=== PATIENT | male | born 1965 | race Caucasian/White ===

== ENCOUNTER 2017-01-05 12:20 | Emergency (ER) | payer MEDICAID ==
[2017-01-05 12:31] VITALS: BP 99/75
--- NOTE | 2017-01-05 12:51 | ERNOTE ---
Psychological HPI - Date Date of Service: 01/05/17 - General Chief Complaint: Anxiety Source: Reports: patient, RN notes reviewed, past records Exam Limitations: Reports: no limitations - Immun/Allergies/Home Medications Allergies/Adverse Reactions: Allergies No Known Allergies Allergy (Verified 01/05/17 12:31) Home Medications: HOME MEDICATIONS Ibuprofen [Motrin] 800 mg PO TID PRN #20 tab 11/21/15 [Last Taken Unknown] Alprazolam 1 mg PO BID PRN #60 tablet 01/05/17 [Last Taken Unknown] Citalopram Hydrobromide [Citalopram HBr] 20 mg PO DAILY #30 tablet 01/05/17 [ Last Taken Unknown] - History of Present Illness Narrative: 51 y/o male ambulatory to the ED for anxiety. He had been taking citalopram and xanax for some time, but he missed his last appointment with his PCP and has been out of medication. He felt like he was doing fine for a few weeks, but the symptoms have been gradually worsening again. He is under the impression that he was dismissed from his PCP, but his clinic record shows he was only given a warning letter for missed appointments. He is tearful and reports that he feels like he just can't handle things anymore. He denies any thoughts of self harm. Time Seen by Provider: 01/05/17 12:34 Prior Treament: Reports: similar symptoms before. Denies: recently seen Review of Systems - Review of Systems Constitutional: Absent: recent illness, fever, chills EYE: Present: no symptoms reported ENT: Present: no symptoms reported Respiratory: Absent: shortness of breath, cough Cardiology: Absent: chest pain, palpitations Gastrointestinal/Abdominal: Absent: nausea, vomiting, abdominal pain, eating less, drinking less Genitourinary: Present: no symptoms reported Musculoskeletal: Absent: muscle pain, joint pain Skin: Absent: rash, lesions Neurological: Absent: headache, dizziness/light-headedness Endocrine: Present: no symptoms reported Hematologic/Lymphatic: Present: no symptoms reported Psych: Present: emotional problems. Absent: anxiety, depressed - Patient's Past Medical History Patient History - Medical: Anxiety Patient History - Cardiac/Respiratory: No pertinent hx Patient History - Cancer: No Hx of Cancer Patient History - Surgical Procedures: Appendectomy, T & A Patient History - Other: None - Social History Living Situations: home Psych History: Hx of Anxiety, Hx of Depression Smoking Status: Current every day smoker Cigarettes Packs Per Day: 1 Alcohol Use: none Drug Use: marijuana - Immunizations Immunizations Up to Date: Yes Hx Pneumococcal Vaccination: Yes History of Influenza Vaccine: Yes Physical Exam - Physical Exam General Appearance: Present: wd/wn, alert, anxious Neck: Present: normal inspection, nontender, supple Respiratory: Present: no respiratory distress, normal breath sounds, no accessory muscle use, lungs clear Cardiovascular/Chest: Present: regular rate, rhythm, no murmur Extremity Exam: Present: normal inspection, normal range of motion, no edema Neurological Exam: Present: alert, oriented, normal mood/affect Skin Exam: Present: normal color, warm/dry ED Progress - Vital Signs Patient's Vital Signs:: I have reviewed the patient's vital signs. Vital Signs: Vital Signs 01/05/17 12:22 Temperature 36.8 C Pulse Rate 77 Respiratory 18 Rate Blood Pressure 99/75 O2 Sat by Pulse 100 Oximetry - Progress/Reassessment Chief Complaint: Anxiety Progress:: Improved Departure Clinical Impression: Anxiety - Departure Disposition: Home Follow Up Needed Condition: Stable Instructions: Panic Attacks, [id number] Additional Instructions: Schedule an appointment with [place] - be careful not to miss appointments and if you are going to miss one, make sure you give 24 hours notice Referrals: Georgia Douglas FNP [Primary Care Provider] - Prescriptions: Alprazolam 1 mg PO BID PRN #60 tablet PRN Reason: Anxiety Citalopram Hydrobromide [Citalopram HBr] 20 mg PO DAILY #30 tablet
== END 2017-01-05 12:53 | disposition home or self-care (01) ==
LOC: ER 12:20
DX: F41.1 Generalized anxiety disorder (principal)

== ENCOUNTER 2020-05-19 12:44 | Observation (INO) ==
[2020-05-19] MEDS ORDERED: VANCOMYCIN/WATER FOR INJ (PEG) 1 GM/200 ML BAG IV ONE (13:42)
[2020-05-19] MEDS ORDERED: KETOROLAC TROMETHAMINE 30 MG/ML VIAL IV ONE (13:42)
[2020-05-19 14:16] LABS: Hematocrit 50.3 % (42.0-52.0); Hemoglobin 17.7 gm/dL (13.5-18.0); Mean Corpuscular Hemoglobin 32.4 pg (27-31); Mean Corpuscular Hgb Conc 35.2 g/dl (32-36); Mean Platelet Volume 9.9 fl (8-11.3); Neutrophil # 11.6 K/mm3 (1.3-6.0); Neutrophil % 74.6 % (42-75.0); Platelet Count 390 K/mm3 (150-450); Red Blood Count 5.47 M/mm3 (4.7-6.0); Red Cell Distribution Width 12.8 % (11.5-14.0); White Blood Count 15.6 K/mm3 (4.0-10.5)
[2020-05-19 14:23] LABS: BUN/Creatinine Ratio 15.9 (9.0-21.6); Calcium * 9.3 mg/dL (7.9-10.9); Estimated Creat Clear 74.6
--- NOTE | 2020-05-19 14:30 | ERNOTE ---
Medical Problem HPI - Narrative Date of Service: 05/19/20 - General Chief Complaint: General Assessment Time Seen by Provider: 05/19/20 13:25 Source: patient - Immun/Allergies/Home Medications Immunizations: IMMUNIZATION HX Immunizations Up to Date Yes History of Influenza Vaccine No Hx Pneumococcal Vaccination No Allergies/Adverse Reactions: Allergies pineapple Allergy (Verified 05/19/20 12:56) hives, nausea tramadol Allergy (Verified 05/19/20 12:56) mood change, angry Home Medications: HOME MEDICATIONS citalopram 40 mg tablet 40 mg PO DAILY #30 tab 05/29/19 [Last Taken Unknown] - History of Present History Narrative: 55-year-old male presents for infection in his groin. He states his symptoms started proximately 3 days ago. He has noticed a lesion on his left buttocks, left testicle, and left groin. He has had chills without fevers. He denies a past medical history of like symptoms. He is not diabetic. He denies any known injuries to the area that might have started the infection. He attempted to see his primary care provider regarding the developing lesions however was unable to see them in office. He also reports concerns regarding his Xanax prescription. Timing: constant, getting worse Review of Systems - Narrative Narrative: REVIEW OF SYSTEMS GENERAL: Negative for any nausea, vomiting, fevers, or weight loss. HEENT: Negative for sore throats, congestion, changes in vision, changes in hearing, CARDIAC: Negative for any chest pain, dyspnea, or palpitations. PULMONARY: Negative for any shortness of breath, cough, or wheezing. GASTROINTESTINAL: Negative for any abdominal pain, nausea, vomiting, constipation, or diarrhea. GENITOURINARY: Negative for any dysuria, changes in urine output. INTEGUMENTARY: Positive for rashes. NEUROLOGIC: Negative for changes in vision or headaches. RHEUMATOLOGIC: Negative for any joint pains, Medical History (Last Reviewed 05/19/20 @ 14:13 by Mina Delgado MD) Pain, dental (Acute) Tobacco abuse (Acute) Onset Date: Unknown Insomnia (Acute) Onset Date: Unknown GERD (gastroesophageal reflux disease) (Acute) Onset Date: Unknown Diverticulitis (Acute) Onset Date: Unknown Depression (Acute) Onset Date: Unknown COPD (chronic obstructive pulmonary disease) (Chronic) Onset Date: Unknown Anxiety disorder (Chronic) Onset Date: ~2012 Left ankle sprain (Acute) Anxiety (Acute) Cervical paraspinal muscle spasm (Acute) Upper respiratory infection (Acute) Muscle spasm (Acute) Lumbar strain (Acute) Surgical History: Surgical History (Last Reviewed 05/19/20 @ 14:14 by Mina Delgado MD) H/O wisdom tooth extraction Onset Date: ~1989 History of facial surgery Onset Date: ~2002 History of tonsillectomy Onset Date: ~1969 Hx of appendectomy Onset Date: ~1977 Family History: Family History (Last Reviewed 05/19/20 @ 14:14 by Mina Delgado MD) Mother Myocardial infarction Hypertension Social History: (Last Reviewed 05/19/20 @ 14:14 by Mina Delgado MD) Social History: adopted: No foster care: No intermediate: No Marital status: Single lives independently: Yes household members: children caregiver/support person: No current occupational status: employed current occupation: [employer] Highest level of school completed/degree received: high school graduate Service: No Tobacco: Smoking Status: Current every day smoker tobacco type: cigarettes Smoking cigarettes per day: 20.0 Smoking packs per day: 1 second hand exposure: Yes Alcohol: alcohol intake: current alcohol intake frequency: a few times a month Substance Use: substance use type: former substance user Dietary Habits: caffeine: Yes Type: carbonated beverages Exercise: Physical activity functional status: normal ROM and activity Physical Exam - Physical Exam General Appearance: Present: wd/wn, no apparent distress Head Exam: Present: normal inspection Respiratory: Present: no respiratory distress, normal breath sounds Cardiovascular/Chest: Present: regular rate, rhythm, no murmur, normal peripheral pulses Gastrointestinal/Abdominal: Present: nontender Male Genitals Exam: Present: other - 3 lesions in the groin with surrounding and communicating erythema, first lesion on his left testicle, second lesion on his left groin/inner thigh, third lesion on his left buttocks. 3 lesions are surrounded by erythema and are extremely tender. Erythema communicates between each lesion. Neurological Exam: Present: alert, normal mood/affect Skin Exam: Present: normal color, warm/dry Progress - Results and Orders Patient's Lab Results:: I have reviewed the patient's lab results. - Vital Signs Vital Signs: Vital Signs 05/19/20 12:44 05/19/20 13:49 Temperature 36.6 C Pulse Rate 98 97 Respiratory Rate 16 16 Blood Pressure 119/73 138/81 O2 Sat by Pulse Oximetry 98 97 - Progress/Reassessment Chief Complaint: General Assessment Progress:: Unchanged Progress Note-Subjective: 05/19/20 20:51 55-year-old male presenting with cellulitis of the left buttocks, and groin with a small area of cellulitis on the left scrotum. Foreign years gangrene was co nsidered in the differential. At this point foreigners gangrene seems less likely. The area of erythema was traced with a pen, cultures were obtained, patient was started on vancomycin. Additionally, CT pelvis was obtained to evaluate further for focal pockets of abscess. CT pelvis was reassuring and patient was placed in inpatient care for further treatment. Departure Clinical Impression: Cellulitis, scrotum, Cellulitis of groin, left - Departure Disposition: Still a patient Condition: Fair
--- NOTE | 2020-05-19 17:09 | HP ---
Chief Complaint - Chief Complaint Date of Service: 05/19/20 Time of Service: 16:34 Chief Complaint: Pain in left groin, scrotum and buttock History of Present Illness: 55-year-old male with a past medical history of anxiety, COPD, GERD, insomnia, tobacco abuse presents from home with complaints of pain in the groin for the past 2 to 3 days. He states he has not had anything like this in the past. He reports subjective fevers and chills at home but did not take his temperature. In the ER he was found to have stable vitals. Blood work showed leukocytosis of 15.6. CT abdomen pelvis showed nonspecific inflammatory change within the subcutaneous fat of the left buttock region medially and inferiorly, no discrete mass or abscess, no subcutaneous air identified, no evidence for inflammatory extension. He was started on vancomycin in the emergency room. He is being admitted for treatment of cellulitis. Medical History (Last Reviewed 05/19/20 @ 14:13 by Mina Delgado MD) Pain, dental (Acute) Tobacco abuse (Acute) Onset Date: Unknown Insomnia (Acute) Onset Date: Unknown GERD (gastroesophageal reflux disease) (Acute) Onset Date: Unknown Diverticulitis (Acute) Onset Date: Unknown Depression (Acute) Onset Date: Unknown COPD (chronic obstructive pulmonary disease) (Chronic) Onset Date: Unknown Anxiety disorder (Chronic) Onset Date: ~2012 Left ankle sprain (Acute) Anxiety (Acute) Cervical paraspinal muscle spasm (Acute) Upper respiratory infection (Acute) Muscle spasm (Acute) Lumbar strain (Acute) Surgical History: Surgical History (Last Reviewed 05/19/20 @ 14:14 by Mina Delgado MD) H/O wisdom tooth extraction Onset Date: ~1989 History of facial surgery Onset Date: ~2002 History of tonsillectomy Onset Date: ~1969 Hx of appendectomy Onset Date: ~1977 Family History: Family History (Last Reviewed 05/19/20 @ 14:14 by Mina Delgado MD) Mother Myocardial infarction Hypertension Social History: (Last Reviewed 05/19/20 @ 14:14 by Mina Delgado MD) Social History: adopted: No foster care: No group home: No Marital status: Single lives independently: Yes household members: children caregiver/support person: No current occupational status: employed current occupation: C[employer] Highest level of school completed/degree received: high school graduate Service: No Tobacco: Smoking Status: Current every day smoker tobacco type: cigarettes Smoking cigarettes per day: 20.0 Smoking packs per day: 1 second hand exposure: Yes Alcohol: alcohol intake: current alcohol intake frequency: a few times a month Substance Use: substance use type: former substance user Dietary Habits: caffeine: Yes Type: carbonated beverages Exercise: Physical activity functional status: normal ROM and activity Review Of Systems (GEN) - Review of Systems Generalized/Overall Review: Present: Chills. Absent: Fever Respiratory: Absent: Shortness of Breath Cardiac: Absent: Chest Pain Abdominal: Absent: Abdominal Pain Genitourinary: Present: Other - Pain, swelling and redness in the scrotum Skin: Present: Other - Pain, swelling and redness in the left groin and buttock Misc: All systems neg except as marked Immunizations: IMMUNIZATION HX Immunizations Up to Date Yes History of Influenza Vaccine No Hx Pneumococcal Vaccination No Allergies/Adverse Reactions: Allergies Allergy/AdvReac Type Severity Reaction Status Date / Time pineapple Allergy hives, Verified 05/19/20 12:56 nausea tramadol Allergy mood Verified 05/19/20 12:56 change, angry Home Medications: HOME MEDICATIONS citalopram 40 mg tablet 40 mg PO DAILY #30 tab 05/29/19 [Last Taken Unknown] Exam - Exam Vital Signs: Vital Signs - Last Taken Temp 36.4 C 05/19/20 16:23 Pulse 72 05/19/20 16:56 Resp 14 05/19/20 16:56 BP 121/78 05/19/20 16:56 Pulse Ox 95 05/19/20 16:23 Constitutional: Present: Alert, Cooperative, Well developed, Well nourished, Middle aged ENT Exam: Present: hearing grossly normal, moist mucous membranes Eye Exam: bilateral eye: EOMI Neck: Absent: lymphadenopathy (R), lymphadenopathy (L) Back Exam: Present: no CVA tenderness, no vertebral tenderness Respiratory: Present: lungs clear, no respiratory distress, no accessory muscle use, No wheezing. Absent: crackles, rhonchi Cardiovascular/Chest: Present: normal peripheral pulses, regular rate, rhythm, no edema, no murmur Peripheral Pulses: dorsalis-pedis (R): 1+, dorsalis-pedis (L): 1+ Abdomen: Present: Normal bowel sounds, soft, nontender /Rectal: Present: Other - Multiple tender, firm nodules noted in the left scrotum, left inguinal region, left medial buttock with surrounding erythema. No drainage noted Extremity: Present: no pedal edema Skin Exam: Present: other - Erythema noted in the left scrotum, left groin and left buttock. Neurologic: Present: alert, normal mood/affect Appearance: Present: appropriate appearance, appropriate insight Eye contact: Present: cooperative Thoughts: Present: normal mood /affect Diagnostic Studies: Abnormal Lab Results 05/19/20 05/19/20 Range/Units 14:05 14:05 WBC 15.6 H (4.0-10.5) K/mm3 MCH 32.4 H (27-31) pg Immature Gran % (Auto) 1.30 H (0.001-0.429) % Immature Gran # (Auto) 0.20 H (0.000-0.0310) K/mm3 Lymphocytes % 13.7 L (20-51) % Neutrophils # 11.6 H (1.3-6.0) K/mm3 Monocytes # 1.3 H (0.0-1.0) k/mm3 Random Glucose 115 H (70-110) mg/dL Laboratory Results WBC 15.6 K/mm3 (4.0-10.5) H 05/19/20 14:05 RBC 5.47 M/mm3 (4.7-6.0) 05/19/20 14:05 Hgb 17.7 gm/dL (13.5-18.0) 05/19/20 14:05 Hct 50.3 % (42.0-52.0) 05/19/20 14:05 MCV 92.0 fl (78-100) 05/19/20 14:05 MCH 32.4 pg (27-31) H 05/19/20 14:05 MCHC 35.2 g/dl (32-36) 05/19/20 14:05 RDW 12.8 % (11.5-14.0) 05/19/20 14:05 Plt Count 390 K/mm3 (150-450) 05/19/20 14:05 MPV 9.9 fl (8-11.3) 05/19/20 14:05 Immature Gran % (Auto) 1.30 % (0.001-0.429) H 05/19/20 14:05 Immature Gran # (Auto) 0.20 K/mm3 (0.000-0.0310) H 05/19/20 14:05 Neutrophils % 74.6 % (42-75.0) 05/19/20 14:05 Lymphocytes % 13.7 % (20-51) L 05/19/20 14:05 Monocytes % 8.0 % (0.0-9) 05/19/20 14:05 Eosinophils % 2.0 % (0.0-3.0) 05/19/20 14:05 Basophils % 0.4 % (0.0-1.0) 05/19/20 14:05 Nucleated RBC % 0.0 k/mm3 (0-1) 05/19/20 14:05 Neutrophils # 11.6 K/mm3 (1.3-6.0) H 05/19/20 14:05 Lymphocytes # 2.13 k/mm3 (1.5-3.5) 05/19/20 14:05 Monocytes # 1.3 k/mm3 (0.0-1.0) H 05/19/20 14:05 Eosinophils # 0.3 k/mm3 (0.0-0.7) 05/19/20 14:05 Absolute Basophils 0.1 k/mm3 (0.0-0.1) 05/19/20 14:05 Sodium 134 mmol/L (132-142) 05/19/20 14:05 Plasma Sodium 134 mmol/L (130-142) 05/19/20 14:05 Potassium 4.0 mmol/L (3.4-4.6) 05/19/20 14:05 Chloride 98 mmol/L (97-106) 05/19/20 14:05 Carbon Dioxide 28.0 mmol/L (24-32.6) 05/19/20 14:05 Anion Gap 12.0 mmol/L (6.8-13.8) 05/19/20 14:05 BUN 17 mg/dL (6-23) 05/19/20 14:05 Creatinine 1.07 mg/dL (0.4-1.4) 05/19/20 14:05 Est GFR (Non-Af Amer) 77 mL/min (60-130) 05/19/20 14:05 BUN/Creatinine Ratio 15.9 (9.0-21.6) 05/19/20 14:05 Random Glucose 115 mg/dL (70-110) H 05/19/20 14:05 Lactic Acid, Venous 1.3 mmol/L (0.4-2.0) 05/19/20 14:05 Calcium 9.3 mg/dL (7.9-10.9) 05/19/20 14:05 Assessment/Plan - Narrative Narrative: 55-year-old male with a past medical history of anxiety, COPD, GERD, insomnia, tobacco abuse presents from home with complaints of pain in the groin for the past 2 to 3 days. He states he has not had anything like this in the past. He reports subjective fevers and chills at home but did not take his temperature. In the ER he was found to have stable vitals. Blood work showed leukocytosis of 15.6. CT abdomen pelvis showed nonspecific inflammatory change within the subcutaneous fat of the left buttock region medially and inferiorly, no discrete mass or abscess, no subcutaneous air identified, no evidence for inflammatory extension. He was started on vancomycin in the emergency room. He is being admitted for treatment of cellulitis. Plan #1 continue with vancomycin day 1 #2 resume home medications for comorbidities #3 follow-up wound cultures - Assessment/Plan (1) Cellulitis, scrotum Problem: Acute (2) Cellulitis of groin, left Problem: Acute (3) Cellulitis of buttock, left Problem: Acute (4) Tobacco abuse Problem: Acute (5) Depression Problem: Acute (6) Anxiety disorder Problem: Chronic Qualifiers:
[2020-05-19] MEDS ORDERED: VANCOMYCIN/WATER FOR INJ (PEG) 1 GM/200 ML BAG IV SCH (17:30)
[2020-05-19] MEDS: oxyCODONE HCL/ACETAMINOPHEN 1 TAB TABLET PO PRN (19:36)
[2020-05-20] MEDS: HYDROcodone/ACETAMINOPHEN 1 EACH TABLET PO PRN ×5 (00:48→19:56)
[2020-05-20] MEDS: VANCOMYCIN HCL 1 GM in DEXTROSE 5 % IN WATER 250 ML IV SCH ×4 (02:24→14:23)
[2020-05-20] MEDS: oxyCODONE HCL/ACETAMINOPHEN 1 TAB TABLET PO PRN ×4 (02:27→22:01)
[2020-05-20 06:31] LABS: Hematocrit 47.7 % (42.0-52.0); Hemoglobin 16.7 gm/dL (13.5-18.0); Mean Cell Volume 92.6 fl (78-100); Mean Corpuscular Hemoglobin 32.4 pg (27-31); Neutrophil # 7.7 K/mm3 (1.3-6.0); Neutrophil % 64.3 % (42-75.0); Platelet Count 401 K/mm3 (150-450); Red Blood Count 5.15 M/mm3 (4.7-6.0); Red Cell Distribution Width 12.8 % (11.5-14.0)
[2020-05-20 06:59] LABS: Albumin * 2.6 gm/dl (3.4-5.0); Anion Gap 10.9 mmol/L (6.8-13.8); Bilirubin, Total 0.3 mg/dL (0.0-1.1); Ca. Corrected For Albumin 9.5 mg/dL (8.4-10.2); Calcium * 8.7 mg/dL (7.9-10.9); Carbon Dioxide 27.2 mmol/L (24-32.6); Potassium 4.1 mmol/L (3.4-4.6); Total Protein 6.7 gm/dL (6.2-8.2)
[2020-05-20] MEDS: CITALOPRAM HYDROBROMIDE 20 MG TABLET PO SCH (08:39)
[2020-05-20] MEDS: hydrOXYzine HCL 25 MG TABLET PO PRN (11:34)
--- NOTE | 2020-05-20 12:14 | CONS ---
[facility] - General Date of Service: 05/20/20 Source: patient, RN/MD, RN notes reviewed, old records Exam Limitations: no limitations - History of Present Illness Timing/Duration: other - 2 or 3 days Modifying Factors - (Worsens): Reports: movement Modifying Factors - (Improves): Reports: immobilization Associated Symptoms: denies symptoms Allergies/Adverse Reactions: Allergies pineapple Allergy (Verified 05/19/20 12:56) hives, nausea tramadol Allergy (Verified 05/19/20 12:56) mood change, angry Home Medications: Home Medications Medication Instructions Recorded Last Taken citalopram 40 mg tablet 40 mg PO DAILY #30 tab 05/29/19 Unknown busPIRone HCL [Buspar] 10 mg PO TID 05/19/20 Unknown Cyclobenzaprine HCl 10 mg PO TID PRN 05/20/20 Unknown Hydrocodone-Acetamin 5-325 mg mg PO Q4H PRN 05/20/20 Unknown Procedures CLOSURE SKIN & SUBCUTANEOUS NEC (08/25/09) Colonoscopy (01/06/02) Contrast arthrogram (12/31/06) Esophagogastroduodenoscopy [EGD] with closed biopsy (01/06/02) Other open reduction of facial fracture (01/11/06) Medications - Medications Current Medications: Current Medications Hydrocodone Bitart/Acetaminophen (Hydrocodone/Acetaminophen 1 Each Tablet) 1 each PO Q4H PRN PRN Reason: Pain Stop: 06/19/20 00:16 Last Admin: 05/20/20 10:07 Dose: 1 each Documented by: Citalopram Hydrobromide (Citalopram Hydrobromide 20 Mg Tablet) 40 mg PO DAILY SAIGE Stop: 06/19/20 09:01 Last Admin: 05/20/20 08:39 Dose: 40 mg Documented by: Hydroxyzine HCl (Hydroxyzine Hcl 25 Mg Tablet) 25 mg PO TID PRN PRN Reason: Anxiety Stop: 06/19/20 11:26 Last Admin: 05/20/20 11:34 Dose: 25 mg Documented by: Vancomycin HCl 1 gm/ Dextrose/ (Water) 250 mls @ 140 mls/hr IV Q12H SAIGE Stop: 06/19/20 02:31 Last Infusion: 05/20/20 04:22 Dose: Infused Documented by: Oxycodone/Acetaminophen (Oxycodone Hcl/Acetaminophen 1 Tab Tablet) 1 tab PO Q6H PRN PRN Reason: Pain Stop: 06/18/20 17:31 Last Admin: 05/20/20 08:39 Dose: 1 tab Documented by: Review of Systems - Review of Systems Generalized/Overall Review: Absent: Chills, Fever EENTM: Present: No Symptoms Reported Respiratory: Present: No Symptoms Reported Cardiac: Present: No Symptoms Reported Abdominal: Present: No Symptoms Reported Genitourinary: Present: Other - Pain and tenderness in the left scrotum. Absent: Burning, Urgency, Frequency Musculoskeletal: Present: No Symptoms Reported Neurological: Present: Anxiety Skin: Present: Other - Pain and tenderness in the left scrotum and left buttock Endocrine: Present: No Symptoms Reported Physical Examination - Exam Narrative: He was admitted through the emergency room last night for pain swelling and lesions on the left scrotum inner left thigh and left buttock. CT scan shows diffuse soft tissue inflammation but no gas or abscess collection. This appears unrelated to the rectum Vital Signs: Vital Signs - Last Taken Temp 36.4 C 05/20/20 11:28 Pulse 70 05/20/20 11:28 Resp 12 05/20/20 11:28 BP 116/71 05/20/20 11:28 Pulse Ox 96 05/20/20 11:28 O2 Oxygen Delivery Method Room Air Comprehensive Narative: 05/20/20 12:07 When I entered the room he is laying on his side with his eyes closed and the blanket over his head. When I asked what was wrong he said "I do not know". Then he says "I could really use a Xanax". He states that about 2 or 3 days ago he started having pain and tenderness. He has never had anything like this before. He has not been febrile. He denies any problems with urination. He states his bowels move regularly. Constitutional: Present: Alert, Oriented x3, Other - Somewhat jumpy ENT Exam: Present: normal ENT inspection Eye Exam: bilateral eye: normal inspection Neck: Present: normal inspection Respiratory: Present: no respiratory distress Cardiovascular/Chest: Present: regular rate, rhythm Abdomen: Present: other - Abdomen appears normal, denies abdominal tenderness /Rectal: Present: Other - He has an area of superficial inflammation with surrounding erythema and edema on the left scrotum. There is no crepitus. He has tenderness and induration along the inner left thigh and buttock, again no crepitus. There are no areas of fluctuance. The area on the scrotum has appearance of MRSA Extremity: Present: normal range of motion Skin Exam: Present: warm/dry Neurologic: Present: laser engineer II-XII nml as tested, normal cerebellar test, no motor/sensory deficits, other - "Jumpy" Appearance: Present: disheveled Eye contact: Present: good eye contact, normal speech Thoughts: Present: normal thought pattern - Results and Findings: Lab/Microbiology results last 24 hrs: Abnormal/Pending Laboratory Last 24 HRS 05/20/20 05/20/20 05/19/20 06:00 06:00 14:05 WBC 12.0 H D MCH 32.4 H Immature Gran % (Auto) Immature Gran # (Auto) Lymphocytes % Eosinophils % 5.2 H Neutrophils # 7.7 H Monocytes # 1.1 H Random Glucose 111 H 115 H ALT 156 H Albumin 2.6 L 05/19/20 14:05 WBC 15.6 H MCH 32.4 H Immature Gran % (Auto) 1.30 H Immature Gran # (Auto) 0.20 H Lymphocytes % 13.7 L Eosinophils % Neutrophils # 11.6 H Monocytes # 1.3 H Random Glucose ALT Albumin Culture 05/19/20 13:45 Wound Culture - Preliminary Scrotum - Left Staphylococcus Species CT scan shows soft tissue inflammation without abscess or gas - Assessments/Findings (1) Cellulitis of buttock, left Problem: Acute (2) Cellulitis of groin, left Problem: Acute (3) Cellulitis, scrotum Diagnosis(s): The visible skin lesion has the appearance of MRSA infection. There is no gas on the CT or exam to suggest Conchita's gangrene however this is a possible consideration. Would recommend continuing IV antibiotics and monitoring the area of inflammation to make sure it does not rapidly progress. If the infection does appear to be progressing he should be transferred to a tertiary care center for debridement. Case discussed with . Could apply mupirocin topically to the scrotum Problem: Acute
[2020-05-20] MEDS: MUPIROCIN 22 APPL TUBE TP SCH ×2 (14:23→22:01)
--- NOTE | 2020-05-20 14:47 | PN ---
Subjective - Date and Time Seen Date: 05/20/20 Time: 09:16 Subjective Narrative: He continues to have pain in his left buttock and groin. Pain is 10 out of 10 at its worst but improves to 5 out of 10 with narcotics. He is able to urinate, denies shortness of breath chest pain or abdominal pain. No fevers. Objective - Review of Systems Generalized/Overall Review: Denies: Chills, Fever Respiratory: Denies: Shortness of Breath Cardiac: Denies: Chest Pain Abdominal: Denies: Abdominal Pain Skin: Reports: Other - Left-sided scrotal, groin, buttock and thigh redness, pain and swelling Misc: All systems neg except as marked - Vitals Vitals: Last Vital Signs Temp 36.4 C 05/20/20 11:28 Pulse 70 05/20/20 11:28 Resp 12 05/20/20 11:28 BP 116/71 05/20/20 11:28 Pulse Ox 96 05/20/20 11:28 - Abnormal Lab Findings Abnormal Lab Findings: Abnormal Lab Results 05/20/20 05/20/20 Range/Units 06:00 06:00 WBC 12.0 H D (4.0-10.5) K/mm3 MCH 32.4 H (27-31) pg Eosinophils % 5.2 H (0.0-3.0) % Neutrophils # 7.7 H (1.3-6.0) K/mm3 Monocytes # 1.1 H (0.0-1.0) k/mm3 Random Glucose 111 H (70-110) mg/dL ALT 156 H (19-67) U/L Albumin 2.6 L (3.4-5.0) gm/dl - Exam Constitutional: Present: Alert, Cooperative, Well developed, Well nourished, No distress, Middle aged ENT Exam: Present: hearing grossly normal Neck: Present: non-tender, supple. Absent: lymphadenopathy (R), lymphadenopathy (L) Respiratory: Present: lungs clear, no respiratory distress, no accessory muscle use, No wheezing. Absent: crackles, rhonchi Cardiovascular/Chest: Present: normal peripheral pulses, regular rate, rhythm, no edema, no murmur Abdomen: Present: Normal bowel sounds, soft, nontender /Rectal: Present: Other - Left scrotal edema, tenderness to palpation and erythema Extremity: Present: non-tender, no pedal edema Skin Exam: Present: other - Left groin, buttocks, thighs: Tenderness to palpation, erythema and swelling Neurologic: Present: alert, normal mood/affect Appearance: Present: appropriate appearance, appropriate insight Eye contact: Present: cooperative Thoughts: Present: normal mood /affect Assessment/Plan Plan Narrative: 55-year-old male with a past medical history of anxiety, COPD, GERD, insomnia, tobacco abuse presents from home with complaints of pain in the groin for the past 2 to 3 days. He states he has not had anything like this in the past. He reports subjective fevers and chills at home but did not take his temperature. In the ER he was found to have stable vitals. Blood work showed leukocytosis of 15.6. CT abdomen pelvis showed nonspecific inflammatory change within the subcutaneous fat of the left buttock region medially and inferiorly, no discrete mass or abscess, no subcutaneous air identified, no evidence for inflammatory extension. He was started on vancomycin in the emergency room. He is being admitted for treatment of cellulitis. Wound cultures positive for Staphylococcus. Continue with vancomycin. Dr. Landaverde has been consulted and states there is no need for any surgical intervention or I&D at this time. Plan #1 continue with vancomycin day 2 #2 resume home medications for comorbidities #3 follow-up wound cultures #4 consult general surgery - Problems/Diagnosis (1) Cellulitis, scrotum Problem: Acute (2) Cellulitis of groin, left Problem: Acute (3) Cellulitis of buttock, left Problem: Acute (4) Tobacco abuse Problem: Acute (5) Depression Problem: Acute (6) Anxiety disorder Problem: Chronic Qualifiers:
[2020-05-21] MEDS: HYDROcodone/ACETAMINOPHEN 1 EACH TABLET PO PRN ×2 (01:46→08:05)
[2020-05-21] MEDS: hydrOXYzine HCL 25 MG TABLET PO PRN ×2 (01:46→09:46)
[2020-05-21] MEDS: VANCOMYCIN HCL 1 GM in DEXTROSE 5 % IN WATER 250 ML IV SCH ×2 (01:47)
[2020-05-21] MEDS: oxyCODONE HCL/ACETAMINOPHEN 1 TAB TABLET PO PRN ×2 (04:44→11:08)
[2020-05-21 06:38] LABS: Hematocrit 50.7 % (42.0-52.0); Hemoglobin 17.6 gm/dL (13.5-18.0); Mean Cell Volume 94.1 fl (78-100); Mean Corpuscular Hemoglobin 32.7 pg (27-31); Mean Corpuscular Hgb Conc 34.7 g/dl (32-36); Mean Platelet Volume 10.5 fl (8-11.3); Neutrophil # 10.4 K/mm3 (1.3-6.0); Neutrophil % 70.6 % (42-75.0); Platelet Count 372 K/mm3 (150-450); Red Blood Count 5.39 M/mm3 (4.7-6.0); Red Cell Distribution Width 12.9 % (11.5-14.0); White Blood Count 14.7 K/mm3 (4.0-10.5)
[2020-05-21 06:46] LABS: Albumin * 2.9 gm/dl (3.4-5.0); Anion Gap 9.1 mmol/L (6.8-13.8); BUN/Creatinine Ratio 11.5 (9.0-21.6); Bilirubin, Total 0.5 mg/dL (0.0-1.1); Calcium * 9.4 mg/dL (7.9-10.9); Carbon Dioxide 28.5 mmol/L (24-32.6); Potassium 4.6 mmol/L (3.4-4.6); Total Protein 7.4 gm/dL (6.2-8.2)
[2020-05-21] MEDS: MUPIROCIN 22 APPL TUBE TP SCH (09:38)
[2020-05-21] MEDS: CITALOPRAM HYDROBROMIDE 20 MG TABLET PO SCH (09:38)
--- NOTE | 2020-05-21 10:27 | DS ---
(1) Cellulitis, scrotum Problem: Acute (2) Cellulitis of groin, left Problem: Acute (3) Cellulitis of buttock, left Problem: Acute (4) Tobacco abuse Problem: Acute (5) Depression Problem: Acute (6) Anxiety disorder Problem: Chronic Qualifiers: Hospital Course: 55-year-old male with a past medical history of anxiety, COPD, GERD, insomnia, tobacco abuse presents from home with complaints of pain in the groin for the past 2 to 3 days. He states he has not had anything like this in the past. He reports subjective fevers and chills at home but did not take his temperature. In the ER he was found to have stable vitals. Blood work showed leukocytosis of 15.6. CT abdomen pelvis showed nonspecific inflammatory change within the subcutaneous fat of the left buttock region medially and inferiorly, no discrete mass or abscess, no subcutaneous air identified, no evidence for inflammatory extension. He was started on vancomycin in the emergency room. He is being admitted for treatment of cellulitis. Wound cultures positive for Staphylococcus. Continue with vancomycin. Dr. Landaverde has been consulted and states there is no need for any surgical intervention or I&D at this time. Wound culture sensitivities are growing MRSA. I will send him home on Bactrim double strength for total 12 days to complete a 2-week course. He will follow- up with his primary care physician within the next 1 to 2 weeks. Procedures Performed: none Results and Findings: Pending Mircobiology Results 05/19/20 14:23 Blood Blood Culture - Preliminary NO GROWTH 24 HOURS 05/19/20 14:05 Blood Blood Culture - Preliminary NO GROWTH 24 HOURS 05/19/20 13:45 Scrotum - Left Wound Culture - Preliminary Staphylococcus Species Lab Pending Results 05/19/20 14:05: WBC 15.6 H, RBC 5.47, Hgb 17.7, Hct 50.3, MCV 92.0, MCH 32.4 H, MCHC 35.2, RDW 12.8, Plt Count 390, MPV 9.9, Immature Gran % (Auto) 1.30 H, Immature Gran # (Auto) 0.20 H, Neutrophils % 74.6, Lymphocytes % 13.7 L, Monocytes % 8.0, Eosinophils % 2.0, Basophils % 0.4, Nucleated RBC % 0.0, Neutrophils # 11.6 H, Lymphocytes # 2.13, Monocytes # 1.3 H, Eosinophils # 0.3, Absolute Basophils 0.1 05/19/20 14:05: Sodium 134, Plasma Sodium 134, Potassium 4.0, Chloride 98, Carbon Dioxide 28.0, Anion Gap 12.0, BUN 17, Creatinine 1.07, Est GFR (Non-Af Amer) 77, BUN/Creatinine Ratio 15.9, Random Glucose 115 H, Calcium 9.3 05/19/20 14:05: Lactic Acid, Venous 1.3 05/19/20 16:00: SARS-CoV-2 (PCR) Not detected 05/20/20 06:00: WBC 12.0 H D, RBC 5.15, Hgb 16.7, Hct 47.7, MCV 92.6, MCH 32.4 H, MCHC 35.0, RDW 12.8, Plt Count 401, MPV 10.0, Immature Gran % (Auto) 0.20, Immature Gran # (Auto) 0.03, Neutrophils % 64.3, Lymphocytes % 20.8, Monocytes % 8.8, Eosinophils % 5.2 H, Basophils % 0.7, Nucleated RBC % 0.0, Neutrophils # 7.7 H, Lymphocytes # 2.50, Monocytes # 1.1 H, Eosinophils # 0.6, Absolute Basophils 0.1 05/20/20 06:00: Sodium 135, Plasma Sodium 135, Potassium 4.1, Chloride 101, Carbon Dioxide 27.2, Anion Gap 10.9, BUN 13, Creatinine 1.00, Est GFR (Non-Af Amer) 83, BUN/Creatinine Ratio 13.0, Random Glucose 111 H, Calcium 8.7, Calcium Adj for Albumin 9.5, Total Bilirubin 0.3, AST 38, ALT 156 H, Alkaline Phosphatase 146, Total Protein 6.7, Albumin 2.6 L 05/21/20 06:00: WBC 14.7 H D, RBC 5.39, Hgb 17.6, Hct 50.7, MCV 94.1, MCH 32.7 H, MCHC 34.7, RDW 12.9, Plt Count 372, MPV 10.5, Immature Gran % (Auto) 0.30, Immature Gran # (Auto) 0.05 H, Neutrophils % 70.6, Lymphocytes % 16.9 L, Monocytes % 7.3, Eosinophils % 4.3 H, Basophils % 0.6, Nucleated RBC % 0.0, Neutrophils # 10.4 H, Lymphocytes # 2.48, Monocytes # 1.1 H, Eosinophils # 0.6, Absolute Basophils 0.1 05/21/20 06:00: Sodium 132, Plasma Sodium 132, Potassium 4.6, Chloride 99, Carbon Dioxide 28.5, Anion Gap 9.1, BUN 12, Creatinine 1.04, Est GFR (Non-Af Amer) 79, BUN/Creatinine Ratio 11.5, Random Glucose 99, Calcium 9.4, Calcium Adj for Albumin 10.0, Total Bilirubin 0.5, AST 29, ALT 131 H, Alkaline Phosphatase 165, Total Protein 7.4, Albumin 2.9 L Discharge Location: Home Disposition: Home self-care Condition: Fair Discharge Activity: Activity as tolerated Discharge Diet: General/regular food Referrals: Georgia Douglas FNP [Primary Care Provider] - Prescriptions (Any new or edited meds): hydrOXYzine HCL [Atarax] 25 mg PO TID PRN #21 tab PRN Reason: Anxiety Transmission Status: Pending to [place], [place] Sulfamethoxazole/Trimethoprim [Bactrim] 1 tab PO BID #24 tab Transmission Status: Pending to [place] Naproxen [EC-Naproxen] 500 mg PO BID PRN #14 tablet.dr LORENZO Reason: Pain Transmission Status: Pending to [place], [place] Complete Home Medications List: Complete Home Medication List: citalopram 40 mg tablet 40 mg PO DAILY #30 tab 05/29/19 busPIRone HCL [Buspar] 10 mg PO TID 05/19/20 Cyclobenzaprine HCl 10 mg PO TID PRN 05/20/20 Hydrocodone-Acetamin 5-325 mg mg PO Q4H PRN 05/20/20 Naproxen [EC-Naproxen] 500 mg PO BID PRN #14 tablet. 05/21/20 Sulfamethoxazole/Trimethoprim [Bactrim] 1 tab PO BID #24 tab 05/21/20 hydrOXYzine HCL [Atarax] 25 mg PO TID PRN #21 tab 05/21/20
[2020-05-21 11:22] VITALS: BP 135/86
== END 2020-05-21 11:20 | disposition home or self-care (01) ==
LOC: ER 12:44 → MS 18:04 → INTOOBSV 18:04 → MS 18:21
PROVIDERS: ADMIT Internal Medicine; ATTEND Internal Medicine